=== PATIENT | male | born 1975 | race Asian ===

== ENCOUNTER 2018-12-28 09:40 | Emergency (ER) | payer BC, OTHER ==
[~2018-12-28] VITALS: Ht 160 cm; Wt 73.5 kg
[2018-12-28] MEDS ORDERED: ACETAMINOPHEN 500 MG TABLET PO ONE (10:15)
--- NOTE | 2018-12-28 10:29 | PHYS DOC ---
Past Medical History Past Medical History: No Pertinent History Past Surgical History: No Surgical History Alcohol Use: Rarely Drug Use: None Adult General Chief Complaint Chief Complaint: FLU SYMPTOM HPI HPI Patient is a previously healthy 43-year-old [place] male, who presents to the emergency department for evaluation. He states he was at work yesterday, when he began experiencing diffuse myalgias and fever. He has not had any nasal congestion, cough, or focal pain. Has not had any dysuria, but states for the past 2 months he has had occasional "bubbling" with urination. He denies any headache, admits to mild sore throat, denies abdominal pain, nausea, vomiting, or diarrhea. He denies any headache or neck pain. There are no alleviating or exacerbating factors to his symptoms otherwise. History was obtained with the use of a language line foreign language interpreter. Review of Systems Review of Systems Constitutional: Reports fevers, chills and myalgias.[] Eyes: Denies change in visual acuity, redness, or eye pain [] HENT: Denies nasal congestion. He admits to sore throat [] Respiratory: Denies cough or shortness of breath [] Cardiovascular: The patient denies any shortness of breath, chest pain, palpitations, or orthopnea [] GI: Denies abdominal pain, nausea, vomiting, bloody stools or diarrhea [] : Denies dysuria or hematuria [] Musculoskeletal: Denies back pain or joint pain [] Integument: Denies rash or skin lesions [] Neurologic: Denies headache, focal weakness or sensory changes [] Endocrine: Denies polyuria or polydipsia [] All other systems were reviewed and found to be within normal limits, except as documented in this note. Current Medications Current Medications Current Medications Medications (Trade) Dose Ordered Sig/Raj Start Time Stop Time Status Last Admin Dose Admin Acetaminophen (Tylenol) 1,000 mg 1X ONCE 12/28/18 10:15 12/28/18 10:16 DC 12/28/18 10:18 1,000 MG Allergies Allergies Allergies Coded Allergies Type Severity Reaction Last Updated Verified No Known Drug Allergies 01/18/14 No Physical Exam Physical Exam PHYSICAL EXAM: CONSTITUTIONAL: Well developed, well nourished HEAD: normocephalic, atraumatic EENT: PERRL, EOMI. Conjunctivae normal color, sclerae non-icteric; moist mucous membranes. NECK: Supple, non-tender; no meningismus. LUNGS: Lungs CTA, breathing even and unlabored. Normal air movement. HEART: Regular rate and rhythm, no murmur CHEST: No deformity; non-tender ABDOMEN: The abdomen is soft, and non-tender, no masses or bruits. EXTREM: Normal ROM; no deformity, no calf tenderness. Normal pulses palpable in all extremities. There is no pedal edema. SKIN: No rash; no diaphoresis NEURO: Alert; normal speech and cognition; CN's grossly intact; strength grossly intact without focal deficit. BACK: No CVA TTP. Current Patient Data Vital Signs Vital Signs Date Time Temp Pulse Resp B/P (MAP) Pulse Ox O2 Delivery O2 Flow Rate FiO2 12/28/18 11:34 99.0 88 18 151/89 (109) 96 Room Air 99.0 Lab Values Laboratory Tests Test 12/28/18 10:30 12/28/18 10:35 12/28/18 10:43 12/28/18 11:27 Influenza Type A Antigen Negative (NEGATIVE) Influenza Type B Antigen Negative (NEGATIVE) White Blood Count 9.0 x10^3/uL (4.0-11.0) Red Blood Count 5.56 x10^6/uL (4.30-5.70) Hemoglobin 16.8 g/dL (13.0-17.5) Hematocrit 48.6 % (39.0-53.0) Mean Corpuscular Volume 87 fL (79-100) Mean Corpuscular Hemoglobin 30 pg (25-35) Mean Corpuscular Hemoglobin Concent 35 g/dL (31-37) Red Cell Distribution Width 13.0 % (11.5-14.5) Platelet Count 209 x10^3/uL (140-400) Neutrophils (%) (Auto) 77 % (31-73) H Lymphocytes (%) (Auto) 9 % (24-48) L Monocytes (%) (Auto) 12 % (0-9) H Eosinophils (%) (Auto) 2 % (0-3) Basophils (%) (Auto) 0 % (0-3) Neutrophils # (Auto) 6.9 x10^3uL (1.8-7.7) Lymphocytes # (Auto) 0.8 x10^3/uL (1.0-4.8) L Monocytes # (Auto) 1.0 x10^3/uL (0.0-1.1) Eosinophils # (Auto) 0.2 x10^3/uL (0.0-0.7) Basophils # (Auto) 0.0 x10^3/uL (0.0-0.2) Sodium Level 138 mmol/L (136-145) Potassium Level 3.5 mmol/L (3.5-5.1) Chloride Level 100 mmol/L (98-107) Carbon Dioxide Level 26 mmol/L (21-32) Anion Gap 12 (6-14) Blood Urea Nitrogen 8 mg/dL (8-26) Creatinine 0.8 mg/dL (0.7-1.3) Estimated GFR (Cockcroft-Gault) 106.5 BUN/Creatinine Ratio 10 (6-20) Glucose Level 95 mg/dL (70-99) Lactic Acid Level 1.8 mmol/L (0.4-2.0) Calcium Level 8.6 mg/dL (8.5-10.1) Total Bilirubin 0.4 mg/dL (0.2-1.0) Aspartate Amino Transferase (AST) 25 U/L (15-37) Alanine Aminotransferase (ALT) 33 U/L (16-63) Alkaline Phosphatase 89 U/L (46-116) Creatine Kinase 104 U/L (39-308) Total Protein 8.5 g/dL (6.4-8.2) H Albumin 3.6 g/dL (3.4-5.0) Albumin/Globulin Ratio 0.7 (1.0-1.7) L Group A Streptococcus Rapid Negative (NEGATIVE) Urine Collection Type Unknown Urine Color Yellow Urine Clarity Clear Urine pH 5.0 Urine Specific [place] 1.010 Urine Protein Negative mg/dL (NEG-TRACE) Urine Glucose (UA) Negative mg/dL (NEG) Urine Ketones (Stick) Negative mg/dL (NEG) Urine Blood Negative (NEG) Urine Nitrite Negative (NEG) Urine Bilirubin Negative (NEG) Urine Urobilinogen Dipstick 0.2 mg/dL (0.2 mg/dL) Urine Leukocyte Esterase Negative (NEG) Urine RBC 0 /HPF (0-2) Urine WBC 0 /HPF (0-4) Urine Squamous Epithelial Cells Occ /LPF Urine Bacteria 0 /HPF (0-FEW) Laboratory Tests 12/28/18 10:35 Laboratory Tests 12/28/18 10:35 EKG EKG [] Radiology/Procedures Radiology/Procedures [PROCEDURE: CHEST PA & LATERAL CHEST PA LATERAL History: COUGH Comparison: 11/20/2013 PA and lateral chest x-ray exam. Findings: The cardiomediastinal silhouette is normal. Pulmonary vasculature is normal. Interstitial thickening of the lung duran diffusely noted. No focal consolidation. No pleural effusion or pneumothorax is seen. There is no acute bone abnormality. IMPRESSION: Subtle nonspecific interstitial thickening of the lung duran. This is slightly greater than compared to prior exam. No focal consolidation.] Course & Med Decision Making Course & Med Decision Making Pertinent Labs and Imaging studies reviewed. (See chart for details) [12:30 PM:Patient remains stable. I discussed test results, the need for close follow-up, and return precautions. I discussed the chest x-ray findings and need for pulmonology follow-up for further evaluation.] Dragon Disclaimer Dragon Disclaimer This electronic medical record was generated, in whole or in part, using a voice recognition dictation system. Departure Departure Impression: Primary Impression: Fever Additional Impression: Viral illness Disposition: HOME, SELF-CARE Condition: STABLE Referrals: UNKNOWN PCP NAME (PCP) TONI FREDERICK MD Patient Instructions: Fever of Unknown Origin, Viral Syndrome Additional Instructions: Tylenol and/or Motrin as needed for fever. Chest x-ray done today does show some findings of interstitial thickening, the significance of which is unknown. Follow-up with process improvement manager for further evaluation is necessary to determine the significance of this and further treatment required. Please call to schedule an appointment as instructed. Problem Qualifiers MARELY GARCIA MD Dec 28, 2018 10:29
--- NOTE | 2018-12-28 10:48 | RAD ---
CHEST PA LATERAL History: COUGH Comparison: 11/20/2013 PA and lateral chest x-ray exam. Findings: The cardiomediastinal silhouette is normal. Pulmonary vasculature is normal. Interstitial thickening of the lung duran diffusely noted. No focal consolidation. No pleural effusion or pneumothorax is seen. There is no acute bone abnormality. IMPRESSION: Subtle nonspecific interstitial thickening of the lung duran. This is slightly greater than compared to prior exam. No focal consolidation. Electronically signed by: Terrence Hernández MD (12/28/2018 10:45 AM) [facility]
[2018-12-28 10:59] LABS: CALCIUM 8.6 mg/dL (8.5-10.1); CREATININE 0.8 mg/dL (0.7-1.3); GFR 106.5; POTASSIUM 3.5 mmol/L (3.5-5.1)
[2018-12-28 11:03] LABS: BASO % 0 % (0-3); EOS # 0.2 x10^3/uL (0.0-0.7); EOS % 2 % (0-3); HEMATOCRIT 48.6 % (39.0-53.0); HEMOGLOBIN 16.8 g/dL (13.0-17.5); LYMPH # 0.8 x10^3/uL (1.0-4.8); LYMPH % 9 % (24-48); MEAN CORPUSCULAR HEMOGLOBIN 30 pg (25-35); MEAN CORPUSCULAR HGB CONC 35 g/dL (31-37); MEAN CORPUSCULAR VOLUME 87 fL (79-100); MONO % 12 % (0-9); NEUT # 6.9 x10^3uL (1.8-7.7); NEUT % 77 % (31-73); PLATELET COUNT 209 x10^3/uL (140-400); RED BLOOD COUNT 5.56 x10^6/uL (4.30-5.70)
[2018-12-28 11:06] LABS: ALBUMIN 3.6 g/dL (3.4-5.0); ALBUMIN/GLOBULIN RATIO 0.7 (1.0-1.7); TOTAL BILIRUBIN 0.4 mg/dL (0.2-1.0); TOTAL PROTEIN 8.5 g/dL (6.4-8.2)
[2018-12-28 11:17] LABS: INFLUENZA A PATIENT NEGATIVE (NEGATIVE); INFLUENZA B PATIENT NEGATIVE (NEGATIVE)
[2018-12-28 11:40] LABS: BILIRUBIN,URINE NEGATIVE (NEG); CLARITY,URINE CLEAR; COLOR,URINE YELLOW; NITRITE,URINE NEGATIVE (NEG); PROTEIN,URINE NEGATIVE (NEG-TRACE); UROBILINOGEN,URINE 0.2 mg/dL (0.2 mg/dL)
[2018-12-28 11:45] LABS: BACTERIA,URINE 0 /HPF (0-FEW); RBC,URINE 0 /HPF (0-2); SQUAMOUS EPITHELIAL CELL,UR OCC /LPF; WBC,URINE 0 /HPF (0-4)
[2018-12-28 12:48] VITALS: BP 143/84
== END 2018-12-28 12:52 | disposition home or self-care (01) ==
LOC: ER 09:40
DX: B33.8 Other specified viral diseases (principal); R50.9 Fever, unspecified; M79.18 Myalgia, other site
CPT/HCPCS: 36415; 71046; 80053; 81001; 82550; 83605; 85025; 87070; 87804; 87880; 99284